=== PATIENT | female | born 1935 | race Caucasian/White ===

== ENCOUNTER 2016-11-02 10:36 | Emergency (ER) | payer MEDICARE, BC ==
[2016-11-02 11:31] LABS: Urine Bilirubin Negative (NEGATIVE); Urine Blood Negative /ul (NEGATIVE); Urine Ketone Negative (NEGATIVE); Urine Nitrite Negative (NEGATIVE); Urine Protein Negative (NEGATIVE); Urine Urobilinogen Normal (NORMAL)
[2016-11-02 11:46] LABS: Urine Appearance Clear; Urine Bacteria None Seen; Urine Color Yellow; Urine RBC None Seen /hpf (0-5); Urine WBC None Seen /hpf (0-5)
--- OUTSIDE RECORDS SUMMARY | 2016-11-02 11:47 | XMS REPORT | Continuity of Care Document ---
:1935 Author Organization [facility] ([facility]) Address [address] [place] [address] Phone [phone] Care Team Providers Name Role Phone Jonathan Boothe Primary Care Provider [phone] Source Comments This disclosure is being made pursuant to the Care Everywhere program, applicable federal and state laws, and may not contain all informaitonavailable regarding this patient.[facility] ([facility]) Active Allergies and Adverse Reactions No Known Allergies Current Medications Prescription Sig. Disp. Refills Start Date End Date Status simvastatin (ZOCOR) 10 mg Take 10 mg by Active tablet mouth every evening. aspirin 81 mg EC tablet Take 81 mg by Active mouth daily. MULTI-VITAMIN PO Take 1 Tab by Active mouth daily omeprazole 20 mg enteric Take 20 mg by 09/20/2012 Active coated capsule mouth daily take 1 capsule (20MG) by oral route every day before a meal verapamil 180 mg CR Take 360 mg by Active tablet mouth daily gabapentin 300 mg capsule Take 600 mg by Active mouth 2 times daily acetaminophen 500 mg Take 1,000 mg by Active tablet mouth 2 times daily ALPRAZolam 0.5 mg tablet Take 0.25 mg by Active mouth 2 times daily docusate 100 mg capsule Take 100 mg by Active mouth 2 times daily as needed pramipexole 0.125 mg Take 0.125 mg by Active tablet mouth at bedtime as needed ALENDRONATE 70 mg tablet 10/27/2014 Active losartan-hydrochlorothiaz Take 1 Tab by 30 Tab 11 11/04/2014 Active anita 100-12.5 mg per mouth daily tablet Active Problems Problem Noted Date Hyperlipidemia 11/02/2014 Overview: Formatting of this note may be different from the original. LIPID HISTORY: Results Date Total Cholesterol Triglycerides HDL LDL 09/19/2013 155 36 83.00 65.00 08/23/2010 171 81 60.00 95.00 07/27/2009 132 61 50.00 70.00 11/11/2008 149 54 55.00 83.00 Chronic anxiety 09/22/2014 Essential hypertension 09/22/2014 LBBB (left bundle branch block) 09/22/2014 Overview: Formatting of this note may be different from the original. CARDIOVASCULAR PROCEDURES ECHO/MUGA: Echo (Normal EF, Normal Valves, Patient rhythm atrial fibrillation) - 2010 ASAEL (Normal EF) - 06/22/2014 ELECTROPHYSIOLOGY: DCCV (Initial Rhythm A Fib, Final Rhythm Sinus, Max Joules 100, 1 Shock) - 2014 Paresthesia of left arm 09/22/2014 KEELY (acute kidney injury) 09/22/2014 REESE (dyspnea on exertion) 09/22/2014 Hyponatremia 09/22/2014 Resolved Problems Problem Noted Date Resolved Date Episodic lightheadedness 09/22/2014 09/23/2014 Immunizations Name Dates Previously Given Next Due Influenza, unspecified 03/24/2014 Pneumococcal Conjugate, PCV13 (Prevnar 13) 09/23/2014 Social History Tobacco Use Types Packs/Day Years Used Date Former Smoker 1 35 Quit: 04/03/1995 Smokeless Tobacco: Never Used Alcohol Use Drinks/Week oz/Week Comments Yes Occasionally Last Filed Vital Signs Vital Sign Reading Time Taken Blood Pressure 164/70 11/04/2014 1:04 PM CDT Pulse 76 11/04/2014 1:04 PM CDT Temperature 37 C (98.6 F) 09/23/2014 8:00 AM CDT Respiratory Rate 18 09/23/2014 8:00 AM CDT Height 1.676 m (5' 5.98") 11/04/2014 1:04 PM CDT Weight 62.596 kg (138 lb) 11/04/2014 1:04 PM CDT Body Mass Index 22.28 11/04/2014 1:04 PM CDT Oxygen Saturation 97% 09/23/2014 12:00 PM CDT Plan of Care Health Maintenance Due Date Last Done Comments Hepatitis B Vaccine (1 of 3 - Primary Series) 1935 Tdap Vaccine 11/17/1946 Lipid Disorder Screening 11/17/1953 Td Vaccine 11/17/1953 Colonoscopy 11/17/1985 Zoster Vaccine 1995 Osteoporosis Screening (DXA Bone Density) 11/17/2000 Pneumococcal Vaccine (2 of 2 - PPSV23) 2014 09/23/2014 Influenza Vaccine: Seasonal (#1) 12/21/2015 03/24/2014 Results from Last 3 Months Not on file
[2016-11-02 12:32] VITALS: BP 179/79
--- NOTE | 2016-11-02 12:32 | ERNOTE ---
Trauma/Assault HPI - Narrative Date of Service: 11/02/16 - General Stated Complaint: FELL MONDAY - HEAD PRESSURE Time Seen by Provider: 11/02/16 10:39 Source: patient Exam Limitations: no limitations - Immun/Allergies/Home Medications Immunizations: IMMUNIZATION HX Immunizations Up to Date Yes History of Influenza Vaccine Yes Hx Pneumococcal Vaccination Yes Allergies/Adverse Reactions: Allergies No Known Allergies Allergy (Verified 11/02/16 10:44) Home Medications: HOME MEDICATIONS Alendronate Sodium [Fosamax] 70 mg PO PRN 12/11/15 [Last Taken Unknown] Alprazolam [Xanax Xr] 0.5 mg PO PRN 12/11/15 [Last Taken Unknown] Aspirin [Aspirin Chewable] 81 mg PO DAILY 12/11/15 [Last Taken Unknown] Cyanocobalamin [Vitamin B-12] 1,000 mcg PO DAILY 12/11/15 [Last Taken Unknown] Donepezil HCl [Aricept] 5 mg PO HS 12/11/15 [Last Taken Unknown] L.acidoph,Paracasei, B.lactis [Probiotic] 1 each PO DAILY 12/11/15 [Last Taken Unknown] Losartan Potassium [Cozaar] 100 mg PO DAILY 12/11/15 [Last Taken Unknown] Methotrexate Sodium [Methotrexate] 2.5 mg PO DAILY 12/11/15 [Last Taken Unknown] Omeprazole 20 mg PO DAILY 12/11/15 [Last Taken Unknown] Pramipexole Di-HCl [Mirapex] 0.25 mg PO DAILY 12/11/15 [Last Taken Unknown] Verapamil HCl [Verelan] 360 mg PO DAILY 12/11/15 [Last Taken Unknown] Acetaminophen [Tylenol] 650 mg PO Q4H PRN 11/02/16 [Last Taken Unknown] Calcium Carbonate [Calcium] 500 mg PO DAILY 11/02/16 [Last Taken Unknown] Furosemide [Lasix] 20 mg PO DAILY 11/02/16 [Last Taken Unknown] Meclizine HCl [Antivert] 6.25 mg PO BID 11/02/16 [Last Taken Unknown] Mv,Calcium,Min/Iron/Folic/Vitk [Essential Woman Tablet] 1 each PO DAILY [Last Taken Unknown] Sennosides [Senna Laxative] 8.6 mg PO BID 11/02/16 [Last Taken Unknown] Spironolactone [Aldactone] 12.5 mg PO DAILY 11/02/16 [Last Taken Unknown] - History of Present Illness Narrative: Patient presents to the ED for head injuty. She relates lynnette monday she fell in the shower. She relates that she has balance problems especially if she leans her head back, these have been going on for a long time. She relates she leaned her head back to wash off her hair and fell, hitting the right side of her head. She states this dazed her and she has had a right sided MOORE ever since , mild now but persistent. No focal N/T/W> She states no other injuries. She has chronic back pain but that does not seem to be worse than normal. No focal N/T/W. No neck pain. She has had some nausea eversince the event but no vomiting. Has not seen anyone else for it. Called her doctor today and was directed to the ED. Location Occurred: Reports: home Pain Location: Reports: head Method of Injury: Reports: direct blow Severity: mild Modifying Factors - (Improves): Reports: other - nothing Modifying Factors - (Worsens): Reports: other - nothing Loss of Consciousness: Reports: no loss of consciousness Associated Symptoms - Trauma: Reports: headache. Denies: confusion, lightheadedness, slurred speech, trouble walking, vision changes, neck pain, chest pain, shortness of breath, vomiting Review of Systems - Review of Systems Constitutional: Absent: fever EYE: Absent: vision changes Respiratory: Absent: shortness of breath Cardiology: Absent: chest pain Gastrointestinal/Abdominal: Absent: abdominal pain Genitourinary: Absent: dysuria Musculoskeletal: Present: See HPI Neurological: Absent: weakness - Patient's Past Medical History Patient History - Medical: Anxiety, GERD, Other Patient History - Cardiac/Respiratory: No pertinent hx Patient History - Cancer: No Hx of Cancer Patient History - Surgical Procedures: No surgical history Patient History - Other: None - Family History Mother Family History - Medical: , Alzheimer's Disease Family History - Cardiac/Respiratory: Hypertension - Social History Living Situations: spouse Abuse History: No History of abuse Psych History: No pertinent hx Smoking Status: Former smoker Have you smoked in the past 12 months: No Alcohol Use: none Drug Use: none - Immunizations Immunizations Up to Date: Yes Hx Pneumococcal Vaccination: Yes History of Influenza Vaccine: Yes Physical Exam - Physical Exam General Appearance: Present: alert, no apparent distress, other - ambulating without difficulty. no distress. Eye Exam: Normal inspection: bilateral, PERRL: bilateral Ears, Nose, Throat: Present: normal ENT inspection, other - no temporal artery tenderness. No otorrhea or rhinorrhea. Absent: pharyngeal erythema Neck: Present: normal inspection, nontender, other - no vertebral tendenress. Absent: tender posterior midline Respiratory: Present: no respiratory distress, normal breath sounds, lungs clear Cardiovascular/Chest: Present: regular rate, rhythm Gastrointestinal/Abdominal: Present: normal bowel sounds, nontender, nondistended, soft Back Exam: Present: normal inspection, other - no point vertebral tenderness, nothign clinically would suggest fracture. Absent: vertebral tenderness Extremity Exam: Present: normal inspection, normal range of motion Neurological Exam: Present: alert, normal mood/affect, no motor/sensory deficits , hand cementer II-XII nml as tested. Absent: motor weakness Skin Exam: Absent: skin rash ED Progress - Results and Orders Patient's Lab Results:: I have reviewed the patient's lab results. - Vital Signs Patient's Vital Signs:: I have reviewed the patient's vital signs. Vital Signs: Vital Signs 11/02/16 11/02/16 10:41 11:34 Temperature 36.6 C 36.5 C Pulse Rate 89 75 Respiratory 14 15 Rate Blood Pressure 165/66 149/67 O2 Sat by Pulse 96 96 Oximetry - CT/Ultrasound CT/Ultrasound Narrative: I reviewed Head CT report - Progress/Reassessment Chief Complaint: Fall Progress Note-Subjective: 11/02/16 12:31 HCT negative. No other suggestion of fracture., No findings of stroke. Likely post concussive symptoms. She wises to go home. I disucssed warnign signs and reasons to return as well as the need for close f/u. Departure Clinical Impression: Fall, Head injury - Departure Disposition: Home self-care Instructions: Head Injury, Adult, [id number] Additional Instructions: Rest. Fluids. Follow-up with your doctor in 2-3 days for a re-check. Return for numbness, tingling, weakness or if your condition worsens or changes in any way. Referrals: Edwina Estrella DO [Primary Care Provider] -
== END 2016-11-02 12:33 | disposition home or self-care (01) ==
LOC: ER 10:36
DX: S09.90XA Unspecified injury of head, initial encounter (principal); Z87.891 Personal history of nicotine dependence; W18.2XXA Fall in (into) shower or empty bathtub, initial encounter

== ENCOUNTER 2017-03-06 14:13 | Inpatient (IN) | payer MEDICARE, BC ==
[2017-03-06] MEDS ORDERED: NORMAL SALINE 1,000 ML IV ONE (14:53)
[2017-03-06 15:02] LABS: Hemoglobin 11.3 gm/dL (12.5-16.0); Mean Cell Volume 88.2 fl (78-100); Mean Corpuscular Hemoglobin 31.1 pg (27-31); Mean Corpuscular Hgb Conc 35.3 g/dl (32-36); Mean Platelet Volume 8.4 fl (6.0-9.5); Neutrophil # 5.6 K/mm3 (1.3-6.0); Neutrophil % 79.8 % (42-75.0); Platelet Count 188 K/mm3 (150-450); Red Blood Count 3.63 M/mm3 (4.2-5.4); Red Cell Distribution Width 12.5 % (11.5-14.0)
[2017-03-06] MEDS ORDERED: ONDANSETRON HCL/PF 2 MG/ML VIAL IV ONE (15:05)
[2017-03-06] MEDS ORDERED: ONDANSETRON HCL/PF 2 MG/ML VIAL ONE (15:06)
[2017-03-06 15:35] LABS: Albumin * 4.2 gm/dl (3.4-5.0); BUN/Creatinine Ratio 18.3 (9.0-21.6); Bilirubin, Total 1.1 mg/dL (0.0-1.1); Ca. Corrected For Albumin 8.8 mg/dL (8.4-10.2); Calcium * 9.3 mg/dL (7.9-10.9); Carbon Dioxide 27.7 mmol/L (24-32.6); Potassium 4.7 mmol/L (3.4-4.6); Total Protein 7.6 gm/dL (6.2-8.2)
--- NOTE | 2017-03-06 15:52 | ERNOTE ---
Medical Problem HPI - General Chief Complaint: Nausea/Vomiting Time Seen by Provider: 03/06/17 14:42 Source: patient Exam Limitations: no limitations - Immun/Allergies/Home Medications Immunizations: IMMUNIZATION HX Immunizations Up to Date Yes History of Influenza Vaccine Yes Hx Pneumococcal Vaccination Yes Allergies/Adverse Reactions: Allergies No Known Allergies Allergy (Verified 03/06/17 14:24) Home Medications: HOME MEDICATIONS Alprazolam [Xanax Xr] 0.5 mg PO PRN 12/11/15 [Last Taken Unknown] Aspirin [Aspirin Chewable] 81 mg PO DAILY 12/11/15 [Last Taken Unknown] Cyanocobalamin [Vitamin B-12] 1,000 mcg PO DAILY 12/11/15 [Last Taken Unknown] Donepezil HCl [Aricept] 5 mg PO HS 12/11/15 [Last Taken Unknown] L.acidoph,Paracasei, B.lactis [Probiotic] 1 each PO DAILY 12/11/15 [Last Taken Unknown] Losartan Potassium [Cozaar] 100 mg PO DAILY 12/11/15 [Last Taken Unknown] Methotrexate Sodium [Methotrexate] 2.5 mg PO DAILY 12/11/15 [Last Taken Unknown] Omeprazole 40 mg PO DAILY 12/11/15 [Last Taken Unknown] Pramipexole Di-HCl [Mirapex] 0.25 mg PO DAILY 12/11/15 [Last Taken Unknown] Verapamil HCl [Verelan] 360 mg PO DAILY 12/11/15 [Last Taken Unknown] Acetaminophen [Tylenol] 650 mg PO Q4H PRN 11/02/16 [Last Taken Unknown] Calcium Carbonate [Calcium] 600 mg PO DAILY 11/02/16 [Last Taken Unknown] Furosemide [Lasix] 20 mg PO DAILY 11/02/16 [Last Taken Unknown] Meclizine HCl [Antivert] 6.25 mg PO BID 11/02/16 [Last Taken Unknown] Mv,Calcium,Min/Iron/Folic/Vitk [Essential Woman Tablet] 1 each PO DAILY [Last Taken Unknown] Sennosides [Senna Laxative] 8.6 mg PO BID 11/02/16 [Last Taken Unknown] Spironolactone [Aldactone] 25 mg PO DAILY 11/02/16 [Last Taken Unknown] Duloxetine HCl [Cymbalta] 30 mg PO DAILY 03/06/17 [Last Taken Unknown] Multivitamin [One Daily Essential] 1 each PO DAILY 03/06/17 [Last Taken Unknown] - History of Present History Narrative: Patient feels very weak and tired and lethargic. She recently had a colonoscopy 3 days ago and since then she has not felt well. She has nausea but has not been vomiting and she is fatigued. She denies any fevers chills diarrhea. Review of Systems - Review of Systems Constitutional: Present: weakness, fatigue, malaise EYE: Present: no symptoms reported ENT: Present: no symptoms reported Respiratory: Present: no symptoms reported Cardiology: Present: no symptoms reported Gastrointestinal/Abdominal: Present: nausea Genitourinary: Present: no symptoms reported Musculoskeletal: Present: no symptoms reported Skin: Present: no symptoms reported - Patient's Past Medical History Patient History - Medical: Anxiety, GERD, Other Patient History - Cardiac/Respiratory: No pertinent hx Patient History - Cancer: No Hx of Cancer Patient History - Surgical Procedures: No surgical history Patient History - Other: None - Family History Mother Family History - Medical: , Alzheimer's Disease Family History - Cardiac/Respiratory: Hypertension - Social History Living Situations: home Abuse History: No History of abuse Psych History: No pertinent hx Alcohol Use: none Drug Use: none - Immunizations Immunizations Up to Date: Yes Hx Pneumococcal Vaccination: Yes History of Influenza Vaccine: Yes Physical Exam - Physical Exam General Appearance: Present: wd/wn, alert, no apparent distress Head Exam: Present: normal inspection, no evidence of injury Ears, Nose, Throat: Present: normal ENT inspection Neck: Present: normal inspection, nontender Respiratory: Present: no respiratory distress, normal breath sounds, no accessory muscle use, chest nontender, lungs clear Cardiovascular/Chest: Present: regular rate, rhythm, no murmur, normal peripheral pulses Gastrointestinal/Abdominal: Present: normal bowel sounds, soft, tenderness - patient has diffuse abdominal tenderness all over the belly but this probably is not rebound positive bowel sounds are normal Back Exam: Present: normal inspection Extremity Exam: Present: normal inspection Neurological Exam: Present: alert, oriented, normal mood/affect, no motor/ sensory deficits ED Progress - Results and Orders Patient's Lab Results:: I have reviewed the patient's lab results. - Vital Signs Patient's Vital Signs:: I have reviewed the patient's vital signs. Vital Signs: Vital Signs 03/06/17 14:18 Temperature 36.2 C L Pulse Rate 84 Respiratory 12 Rate Blood Pressure 126/66 O2 Sat by Pulse 96 Oximetry - Progress/Reassessment Chief Complaint: Nausea/Vomiting Plan - Plan Plan: Patient's comprehensive metabolic panel reveals that her sodium is 119. She did feel very nauseated in our ER for which she received Zofran 4 mg IV. She did feel better following the administration of Zofran. This case was discussed with Dr. Estrella. Patient will be admitted for hyponatremia. Departure Clinical Impression: Hyponatremia - Departure Disposition: [facility] Condition: Good
[2017-03-06 16:19] LABS: Urine Bilirubin Negative (NEGATIVE); Urine Blood 25 /ul (NEGATIVE); Urine Ketone Negative (NEGATIVE); Urine Nitrite Negative (NEGATIVE); Urine Protein Negative (NEGATIVE); Urine Urobilinogen Normal (NORMAL)
[2017-03-06 16:29] LABS: Urine Appearance Clear; Urine Bacteria 1+; Urine Color Yellow; Urine RBC None Seen /hpf (0-5)
[2017-03-06] MEDS: NORMAL SALINE 1,000 ML IV PRN (17:12)
[2017-03-06] MEDS: ENOXAPARIN SODIUM 40 MG/0.4 ML SYRG SC SCH (17:12)
[2017-03-06] MEDS: ONDANSETRON 4 MG TAB.RAPDIS PO PRN (17:39)
[2017-03-06 19:32] LABS: Anion Gap 14.2 mmol/L (6.8-13.8); BUN/Creatinine Ratio 16.3 (9.0-21.6); Carbon Dioxide 26.6 mmol/L (24-32.6); Estimated Creat Clear 44.9; Potassium 4.8 mmol/L (3.4-4.6)
--- NOTE | 2017-03-06 19:43 | HP ---
Chief Complaint - Chief Complaint Date of Service: 03/06/17 Time of Service: 19:43 Chief Complaint: weakness, dizziness, abdominal pain History of Present Illness: 81 years old WF adm to the hospital with reports of weakness, dizziness, leg cramps and nausea x3 days. PMH significant for diastolic CHF, hypertension, HDL, spinal stenosis, and vertigo. Pt stated she had CT ABD done 3 days ago and since then she been having a sick feeling to her stomach. She was having abdominal pain hence the reason for the CT ABD. After CT ABD she was having diarrhea as expected due to gastrografin. On Monday her appetite was poor and the sick feeling to her stomach got worst. she was now lightheaded, much more weaker and increased muscle cramps. In ER Na+ 119, urine specific gravity 1.010. She had bolus 1L NS and continue with NS hydration. Repeated Na+ gradually improving. Plan of care discussed with pt she verbalized understanding and agree. - Patient's Past Medical History Patient History - Medical: Anxiety, Dementia, GERD, UTI'S, Other - hyponatremia , spinal stenosis,constipation, vertigo Patient History - Cardiac/Respiratory: CHF - diastolic , Hypertension, Hyperlipidemia, Other Patient History - Cancer: No Hx of Cancer Patient History - Surgical Procedures: Colonoscopy, EGD Patient History - Other: None - Family History Mother Family History - Medical: , Alzheimer's Disease Family History - Cardiac/Respiratory: Hypertension - Social History Living Situations: alone Abuse History: No History of abuse Psych History: No pertinent hx Smoking Status: Former smoker Have you smoked in the past 12 months: No Alcohol Use: none Drug Use: none - Immunizations Immunizations Up to Date: Yes Hx Pneumococcal Vaccination: Yes History of Influenza Vaccine: Yes Review Of Systems (GEN) - Review of Systems Generalized/Overall Review: Present: Weakness, Malaise, Fatigue EENTM: Present: Other - hard of hearing Respiratory: Present: No Symptoms Reported Cardiac: Present: No Symptoms Reported Abdominal: Present: Nausea, Abdominal Pain Genitourinary: Present: Frequency Musculoskeletal: Present: Muscle Pain Neurological: Present: Tingling Skin: Present: No Symptoms Reported Endocrine: Present: No Symptoms Reported Immunizations: IMMUNIZATION HX Immunizations Up to Date Yes History of Influenza Vaccine Yes Hx Pneumococcal Vaccination Yes Allergies/Adverse Reactions: Allergies Allergy/AdvReac Type Severity Reaction Status Date / Time No Known Allergies Allergy Verified 03/06/17 17:16 Home Medications: HOME MEDICATIONS Alprazolam [Xanax Xr] 2.5 mg PO BID 12/11/15 [Last Taken Unknown] Aspirin [Aspirin Chewable] 81 mg PO DAILY 12/11/15 [Last Taken Unknown] Cyanocobalamin [Vitamin B-12] 1,000 mcg PO DAILY 12/11/15 [Last Taken Unknown] Donepezil HCl [Aricept] 10 mg PO HS 12/11/15 [Last Taken Unknown] L.acidoph,Paracasei, B.lactis [Probiotic] 1 each PO BID 12/11/15 [Last Taken Unknown] Losartan Potassium [Cozaar] 100 mg PO DAILY 12/11/15 [Last Taken Unknown] Omeprazole 40 mg PO DAILY 12/11/15 [Last Taken Unknown] Pramipexole Di-HCl [Mirapex] 0.25 mg PO DAILY 12/11/15 [Last Taken Unknown] Verapamil HCl [Verelan] 360 mg PO DAILY 12/11/15 [Last Taken Unknown] Acetaminophen [Tylenol] 650 mg PO Q4H PRN 11/02/16 [Last Taken Unknown] Calcium Carbonate [Calcium] 600 mg PO DAILY 11/02/16 [Last Taken Unknown] Furosemide [Lasix] 40 mg PO DAILY 11/02/16 [Last Taken Unknown] Meclizine HCl [Antivert] 6.25 mg PO BID 11/02/16 [Last Taken Unknown] Sennosides [Senna Laxative] 8.6 mg PO BID 11/02/16 [Last Taken Unknown] Spironolactone [Aldactone] 25 mg PO DAILY 11/02/16 [Last Taken Unknown] Duloxetine HCl [Cymbalta] 30 mg PO DAILY 03/06/17 [Last Taken Unknown] Methotrexate Sodium [Methotrexate] 10 mg PO DAILY 03/06/17 [Last Taken Unknown] Multivitamin [One Daily Essential] 1 each PO DAILY 03/06/17 [Last Taken Unknown] Exam - Exam Vital Signs: Vital Signs - Last Taken Temp 36.4 C L 03/06/17 18:31 Pulse 82 03/06/17 18:31 Resp 20 03/06/17 18:31 BP 150/47 03/06/17 18:31 Pulse Ox 95 03/06/17 18:31 Constitutional: Present: Alert, Oriented x3, Cooperative, No distress, Elderly ENT Exam: Present: hard of hearing Eye Exam: bilateral eye: normal inspection Neck: Present: full range of motion Back Exam: Present: normal inspection Breasts: Present: Exam deferred Respiratory: Present: chest non-tender, lungs clear, normal breath sounds, no respiratory distress Cardiovascular/Chest: Present: normal peripheral pulses, regular rate, rhythm, no chest tenderness, no edema Peripheral Pulses: dorsalis-pedis (R): 2+, dorsalis-pedis (L): 2+ Abdomen: Present: Normal bowel sounds, soft, nontender, nondistended, no rebound tenderness /Rectal: Present: Exam deferred Extremity: Present: normal range of motion, non-tender, normal inspection, no pedal edema Skin Exam: Present: normal color, warm/dry Neurologic: Present: oriented x 3 Appearance: Present: appropriate appearance, appropriate insight Eye contact: Present: cooperative, good eye contact Thoughts: Present: normal thought pattern Diagnostic Studies: Abnormal Lab Results 03/06/17 03/06/17 Range/Units 16:10 19:15 Sodium 123 L (132-142) mmol/L Plasma Sodium 123 L (130-142) mmol/L Potassium 4.8 H (3.4-4.6) mmol/L Chloride 87 L (97-106) mmol/L Anion Gap 14.2 H (6.8-13.8) mmol/L Urine Blood 25 H (NEGATIVE) /ul Ur Leukocyte Esterase 75 H (NEGATIVE) /ul Urine WBC 5-10 H (0-5) /hpf Urine Bacteria 1+ H (NONE) Laboratory Results WBC 7.0 K/mm3 (4.0-10.5) 03/06/17 15:00 RBC 3.63 M/mm3 (4.2-5.4) L 03/06/17 15:00 Hgb 11.3 gm/dL (12.5-16.0) L 03/06/17 15:00 Hct 32.0 % (37.0-47.0) L 03/06/17 15:00 MCV 88.2 fl (78-100) 03/06/17 15:00 MCH 31.1 pg (27-31) H 03/06/17 15:00 MCHC 35.3 g/dl (32-36) 03/06/17 15:00 RDW 12.5 % (11.5-14.0) 03/06/17 15:00 Plt Count 188 K/mm3 (150-450) 03/06/17 15:00 MPV 8.4 fl (6.0-9.5) 03/06/17 15:00 Immature Gran % (Auto) 0.40 % (0.001-0.429) 03/06/17 15:00 Immature Gran # (Auto) 0.03 K/mm3 (0.000-0.0310) 03/06/17 15:00 Neutrophils % 79.8 % (42-75.0) H 03/06/17 15:00 Lymphocytes % 10.3 % (20-51) L 03/06/17 15:00 Monocytes % 8.2 % (0.0-9) 03/06/17 15:00 Eosinophils % 0.9 % (0.0-3.0) 03/06/17 15:00 Basophils % 0.4 % (0.0-1.0) 03/06/17 15:00 Nucleated RBC % 0.0 k/mm3 (0-1) 03/06/17 15:00 Neutrophils # 5.6 K/mm3 (1.3-6.0) 03/06/17 15:00 Lymphocytes # 0.7 k/mm3 (1.5-3.5) L 03/06/17 15:00 Monocytes # 0.6 k/mm3 (0.0-1.0) 03/06/17 15:00 Eosinophils # 0.1 k/mm3 (0.0-0.7) 03/06/17 15:00 Absolute Basophils 0.0 k/mm3 (0.0-0.1) 03/06/17 15:00 Sodium 123 mmol/L (132-142) L 03/06/17 19:15 Plasma Sodium 123 mmol/L (130-142) L 03/06/17 19:15 Potassium 4.8 mmol/L (3.4-4.6) H 03/06/17 19:15 Chloride 87 mmol/L (97-106) L 03/06/17 19:15 Carbon Dioxide 26.6 mmol/L (24-32.6) 03/06/17 19:15 Anion Gap 14.2 mmol/L (6.8-13.8) H 03/06/17 19:15 BUN 15 mg/dL (3-23) 03/06/17 19:15 Creatinine 0.92 mg/dL (0.4-1.4) 03/06/17 19:15 Est GFR (Non-Af Amer) 62 mL/min (60-130) 03/06/17 19:15 BUN/Creatinine Ratio 16.3 (9.0-21.6) 03/06/17 19:15 Random Glucose 104 mg/dL (70-110) 03/06/17 19:15 Calcium 9.0 mg/dL (7.9-10.9) 03/06/17 19:15 Calcium Adj for Albumin 8.8 mg/dL (8.4-10.2) 03/06/17 15:00 Total Bilirubin 1.1 mg/dL (0.0-1.1) 03/06/17 15:00 AST 23 U/L (0-48) 03/06/17 15:00 ALT 25 U/L (19-67) 03/06/17 15:00 Alkaline Phosphatase 86 U/L (50-170) 03/06/17 15:00 Total Protein 7.6 gm/dL (6.2-8.2) 03/06/17 15:00 Albumin 4.2 gm/dl (3.4-5.0) 03/06/17 15:00 Urine Color Yellow 03/06/17 16:10 Urine Appearance Clear 03/06/17 16:10 Urine pH 6.0 pH (5.0-7.0) 03/06/17 16:10 Ur Specific [place] 1.010 SP.GR. (1.005-1.010) 03/06/17 16:10 Urine Protein Negative mg/dL (NEGATIVE) 03/06/17 16:10 Urine Glucose (UA) Negative mg/dL (NEGATIVE) 03/06/17 16:10 Urine Ketones Negative mg/dL (NEGATIVE) 03/06/17 16:10 Urine Blood 25 /ul (NEGATIVE) H 03/06/17 16:10 Urine Nitrate Negative (NEGATIVE) 03/06/17 16:10 Urine Bilirubin Negative mg/dl (NEGATIVE) 03/06/17 16:10 Urine Urobilinogen Normal EU/dl (NORMAL) 03/06/17 16:10 Ur Leukocyte Esterase 75 /ul (NEGATIVE) H 03/06/17 16:10 Urine RBC None seen /hpf (0-5) 03/06/17 16:10 Urine WBC 5-10 /hpf (0-5) H 03/06/17 16:10 Ur Epithelial Cells Trace /hpf (0-5) 03/06/17 16:10 Urine Bacteria 1+ (NONE) H 03/06/17 16:10 Urine Culture Comments Culture to follow 03/06/17 16:10 Assessment/Plan - Narrative Narrative: Acute hyponatremia- likely due to hypovolemic from diarrhea and diuretic use On adm Na+ 119---->123 after IVF, will continue to monitor pt on Lasix, aldactone and losartan at home, will hold medications for now Urine specific gravity 1.010 continue IVF Monitor BMP 4hrs Mag, phos, Lipid pending Hyperkalemia-gradually trending up On adm K+ 4.7---->4.9 Monitor Bmp Diastolic CHF- stable Weight daily Strict I/O Monitor Lungs while getting IVF May resume home medications when hyponatremia resolved and stable Hypertension- continue to monitor VS Q shift and as indicated Constipation Continue with laxatives and stool softeners Code status: DNR VTE ppx: SCD, lovenox and ambulate GI ppx:protonix Time 45 minutes, previous records reviewed and case discussed with Dr Estrella - Assessment/Plan (1) Acute hyponatremia Problem: Acute (2) Chronic diastolic CHF (congestive heart failure) Problem: Chronic (3) Constipation Problem: Chronic Qualifiers: Constipation type: slow transit constipation Qualified Code(s): K59.01 - Slow transit constipation (4) Hyperkalemia Problem: Acute
[2017-03-06] MEDS: SENNOSIDES 8.6 MG TABLET PO SCH (21:29)
[2017-03-06] MEDS: DONEPEZIL HCL 10 MG TABLET PO SCH (21:29)
[2017-03-06 23:15] LABS: Anion Gap 11.6 mmol/L (6.8-13.8); BUN/Creatinine Ratio 17.1 (9.0-21.6); Calcium * 8.3 mg/dL (7.9-10.9); Carbon Dioxide 25.4 mmol/L (24-32.6); Estimated Creat Clear 50.4; Magnesium 1.4 mg/dL (1.2-2.8)
[2017-03-07] MEDS: ONDANSETRON 4 MG TAB.RAPDIS PO PRN ×3 (00:27→22:01)
[2017-03-07] MEDS: NORMAL SALINE 1,000 ML IV PRN ×3 (00:29→19:08)
[2017-03-07] MEDS: PANTOPRAZOLE SODIUM 40 MG TABLET.EC PO SCH (07:16)
[2017-03-07] MEDS ORDERED: FOLIC PO SCH (09:00)
[2017-03-07] MEDS ORDERED: VITK PO SCH (09:00)
[2017-03-07] MEDS ORDERED: [UNRECOGNIZED DRUG - OTHER] PO SCH (09:00)
[2017-03-07] MEDS ORDERED: IRON PO SCH (09:00)
[2017-03-07] MEDS ORDERED: MV CALCIUM MIN PO SCH (09:00)
[2017-03-07] MEDS: ASPIRIN 81 MG TAB.CHEW PO SCH (09:27)
[2017-03-07] MEDS: LACTOBACILLUS ACIDOPHILUS 100 CAP BTL PO SCH (09:27)
[2017-03-07] MEDS: DULoxetine HCL 30 MG CAPSULE.SA PO SCH (09:28)
[2017-03-07] MEDS: SENNOSIDES 8.6 MG TABLET PO SCH ×4 (09:29→21:05)
[2017-03-07] MEDS: CYANOCOBALAMIN 1,000 MCG TABLET PO SCH (09:29)
[2017-03-07] MEDS: MULTIVITAMINS 1 CAP CAPSULE PO SCH (09:29)
[2017-03-07] MEDS: PRAMIPEXOLE DI-HCL 0.5 MG TABLET PO SCH (09:37)
[2017-03-07] MEDS: VERAPAMIL HCL 120 MG TABLET.SA PO SCH (09:37)
[2017-03-07 09:42] LABS: Anion Gap 11.2 mmol/L (6.8-13.8); BUN/Creatinine Ratio 14.3 (9.0-21.6); Calcium * 8.7 mg/dL (7.9-10.9); Carbon Dioxide 26.7 mmol/L (24-32.6); Estimated Creat Clear 49.2; Potassium 3.9 mmol/L (3.4-4.6)
[2017-03-07] MEDS ORDERED: SUCRALFATE 1 G/10 ML UDC PO ONE (15:48)
[2017-03-07] MEDS ORDERED: MAG HYDROX/ALUMINUM HYD/SIMETH 30 ML UDC PO ONE (15:48)
[2017-03-07] MEDS ORDERED: LIDOCAINE HCL 20 ML UDC PO ONE (15:48)
[2017-03-07 16:18] LABS: BUN/Creatinine Ratio 15.4 (9.0-21.6); Calcium * 8.1 mg/dL (7.9-10.9); Carbon Dioxide 26.1 mmol/L (24-32.6); Estimated Creat Clear 63.5; Potassium 4.1 mmol/L (3.4-4.6)
[2017-03-07] MEDS: ENOXAPARIN SODIUM 40 MG/0.4 ML SYRG SC SCH (16:40)
[2017-03-07 20:00] LABS: Anion Gap 13.2 mmol/L (6.8-13.8); Calcium * 8.4 mg/dL (7.9-10.9); Carbon Dioxide 24.8 mmol/L (24-32.6); Estimated Creat Clear 59.9
[2017-03-07] MEDS: DONEPEZIL HCL 10 MG TABLET PO SCH (21:02)
[2017-03-07] MEDS: ALPRAZolam 0.5 MG TABLET PO PRN (21:57)
[2017-03-08 06:55] LABS: Anion Gap 10.1 mmol/L (6.8-13.8); BUN/Creatinine Ratio 10.8 (9.0-21.6); Calcium * 8.4 mg/dL (7.9-10.9); Carbon Dioxide 25.8 mmol/L (24-32.6); Estimated Creat Clear 63.5; Potassium 3.9 mmol/L (3.4-4.6)
--- NOTE | 2017-03-08 08:19 | PN ---
Subjective - Date and Time Seen Date: 03/07/17 Time: 09:30 Subjective Narrative: Patient seen and examined at bedside. No acute issues overnight. Patient states she is just generally not feeling well. She admits to nausea and abdominal bloating/discomfort, especially after eating. Objective - Review of Systems Generalized/Overall Review: Reports: Weakness - generalized, Fatigue EENTM: Reports: No Symptoms Reported Respiratory: Reports: No Symptoms Reported Cardiac: Reports: No Symptoms Reported Abdominal: Reports: Nausea Genitourinary Symptoms: Reports: No Symptoms Reported Musculoskeletal Complaints: Reports: No Symptoms Reported Neurological: Reports: No Symptoms Reported Skin: Reports: No Symptoms Reported Endocrine: Reports: No Symptoms Reported Misc: All systems neg except as marked - Vitals Vitals: Last Vital Signs Temp 37.4 C 03/08/17 07:08 Pulse 84 03/08/17 07:08 Resp 18 03/08/17 07:08 BP 148/52 03/08/17 07:08 Pulse Ox 92 03/08/17 07:08 - Abnormal Lab Findings Abnormal Lab Findings: Abnormal Lab Results 03/07/17 03/07/17 03/07/17 Range/Units 09:20 15:35 16:33 Sodium 123 L 121 L (132-142) mmol/L Plasma Sodium 123 L 121 L (130-142) mmol/L Chloride 89 L 89 L (97-106) mmol/L Random Glucose (70-110) mg/dL Ur Random Creatinine 47.0 L (60-200) mg/dL 03/07/17 03/08/17 Range/Units 19:43 06:10 Sodium 121 L 121 L (132-142) mmol/L Plasma Sodium 121 L 121 L (130-142) mmol/L Chloride 87 L 89 L (97-106) mmol/L Random Glucose 117 H (70-110) mg/dL Ur Random Creatinine (60-200) mg/dL - Exam Constitutional: Present: Alert, Oriented x3, Cooperative, Well developed, No distress, Elderly, Thin and frail ENT Exam: Present: moist mucous membranes Respiratory: Present: lungs clear, normal breath sounds, no respiratory distress , no accessory muscle use Cardiovascular/Chest: Present: regular rate, rhythm Abdomen: Present: soft, nontender, nondistended, no rebound tenderness Skin Exam: Present: warm/dry Neurologic: Present: no motor/sensory deficits, alert, normal mood/affect, oriented x 3 Appearance: Present: appropriate appearance, appropriate insight, neat Eye contact: Present: cooperative, good eye contact, normal speech Thoughts: Present: normal thought pattern, no apparent hallucination Assessment/Plan - Problems/Diagnosis (1) Hyponatremia Problem: Acute Narrative: Sodium level slowly improving. 119 on admission and now 123. Continue IV fluids with NS @ 125cc/hr. Recheck BMP at 1900 and again in AM. (2) Nausea Problem: Acute (3) Postprandial abdominal bloating Problem: Acute Narrative: Gastric emptying study ordered for tomorrow AM
--- NOTE | 2017-03-08 08:19 | PN ---
Subjective - Date and Time Seen Date: 03/08/17 Time: 14:58 Subjective Narrative: Patient seen and examined at bedside. No acute issues overnight. Patient feeling nauseated and just completed her gastric emptying study. Objective - Review of Systems Generalized/Overall Review: Reports: Weakness - generalized EENTM: Reports: No Symptoms Reported Respiratory: Reports: No Symptoms Reported Cardiac: Reports: No Symptoms Reported Abdominal: Reports: Nausea Genitourinary Symptoms: Reports: No Symptoms Reported Musculoskeletal Complaints: Reports: No Symptoms Reported Neurological: Reports: Headache Skin: Reports: No Symptoms Reported Endocrine: Reports: No Symptoms Reported Misc: All systems neg except as marked - Vitals Vitals: Last Vital Signs Temp 37.4 C 03/08/17 07:08 Pulse 84 03/08/17 07:08 Resp 18 03/08/17 07:08 BP 148/52 03/08/17 07:08 Pulse Ox 92 03/08/17 07:08 - Abnormal Lab Findings Abnormal Lab Findings: Abnormal Lab Results 03/07/17 03/07/17 03/07/17 Range/Units 09:20 15:35 16:33 Sodium 123 L 121 L (132-142) mmol/L Plasma Sodium 123 L 121 L (130-142) mmol/L Chloride 89 L 89 L (97-106) mmol/L Random Glucose (70-110) mg/dL Ur Random Creatinine 47.0 L (60-200) mg/dL 03/07/17 03/08/17 Range/Units 19:43 06:10 Sodium 121 L 121 L (132-142) mmol/L Plasma Sodium 121 L 121 L (130-142) mmol/L Chloride 87 L 89 L (97-106) mmol/L Random Glucose 117 H (70-110) mg/dL Ur Random Creatinine (60-200) mg/dL - Exam Constitutional: Present: Alert, Oriented x3, Cooperative, Well developed, Acute distress - appears uncomfortable secondary to nausea, Elderly, Thin and frail ENT Exam: Present: moist mucous membranes Respiratory: Present: lungs clear, normal breath sounds, no respiratory distress , no accessory muscle use Cardiovascular/Chest: Present: regular rate, rhythm Abdomen: Present: soft, nontender, nondistended, no rebound tenderness Extremity: Present: normal range of motion, normal inspection Skin Exam: Present: warm/dry Neurologic: Present: no motor/sensory deficits, alert, normal mood/affect, oriented x 3 Appearance: Present: appropriate appearance, appropriate insight, neat, no memory impairment Eye contact: Present: cooperative, good eye contact, normal speech Thoughts: Present: normal thought pattern, no apparent hallucination Assessment/Plan - Problems/Diagnosis (1) Hyponatremia Problem: Acute Narrative: Despite initial improvement in sodium level with NS, sodium plateaued around 123 and is now trending down and is 121 this AM. Still awaiting parts of her hyponatremia work-up including urine and plasma osmolality and urine urea nitrogen [to calculate fractional excretion of urea nitrogen (can't use fractional excretion of sodium as patient is on lasix at home)]. Discontinue IV fluids. Start fluid restriction of 2000cc per 24 hours. Recheck BMP at 1600 today. (2) Gastroparesis Problem: Acute Narrative: Gastric emptying study completed this AM shows delayed gastric emptying consistent with gastroparesis. Start reglan liquid PO 5mg 15 minutes before meals. Continue zofran as needed for N/V.
[2017-03-08] MEDS ORDERED: METHOTREXATE SODIUM 2.5 MG TABLET PO SCH (09:00)
[2017-03-08] MEDS: PANTOPRAZOLE SODIUM 40 MG TABLET.EC PO SCH (11:41)
[2017-03-08] MEDS: SPIRONOLACTONE 25 MG TABLET PO SCH (11:41)
[2017-03-08] MEDS: LACTOBACILLUS ACIDOPHILUS 100 CAP BTL PO SCH (11:42)
[2017-03-08] MEDS: LOSARTAN POTASSIUM 50 MG TABLET PO SCH (11:42)
[2017-03-08] MEDS: VERAPAMIL HCL 120 MG TABLET.SA PO SCH (11:42)
[2017-03-08] MEDS: ASPIRIN 81 MG TAB.CHEW PO SCH (11:42)
[2017-03-08] MEDS: DULoxetine HCL 30 MG CAPSULE.SA PO SCH (11:43)
[2017-03-08] MEDS: FUROSEMIDE 40 MG TABLET PO SCH (11:43)
[2017-03-08] MEDS: SENNOSIDES 8.6 MG TABLET PO SCH ×2 (11:44→22:00)
[2017-03-08] MEDS: PRAMIPEXOLE DI-HCL 0.5 MG TABLET PO SCH ×2 (11:44→22:34)
[2017-03-08] MEDS: CYANOCOBALAMIN 1,000 MCG TABLET PO SCH (11:44)
[2017-03-08] MEDS: MULTIVITAMINS 1 CAP CAPSULE PO SCH (11:44)
[2017-03-08] MEDS: FLUTICASONE PROPIONATE 120 SPRAY INHALER NS PRN (11:47)
[2017-03-08] MEDS: ACETAMINOPHEN 325 MG TABLET PO PRN (11:54)
[2017-03-08] MEDS ORDERED: METOCLOPRAMIDE HCL 5 MG/5 ML BTL PO SCH ×2 (12:30→17:00)
[2017-03-08] MEDS: ONDANSETRON 4 MG TAB.RAPDIS PO PRN (12:48)
[2017-03-08 16:35] LABS: Carbon Dioxide 26.1 mmol/L (24-32.6); Estimated Creat Clear 51.6; Potassium 4.1 mmol/L (3.4-4.6)
[2017-03-08] MEDS: ENOXAPARIN SODIUM 40 MG/0.4 ML SYRG SC SCH (16:52)
[2017-03-08] MEDS: SODIUM CHLORIDE 3 % 500 ML IV SCH (16:53)
[2017-03-08] MEDS: METOCLOPRAMIDE HCL 5 MG/5 ML BTL PO SCH (17:03)
[2017-03-08 19:17] LABS: Anion Gap 12.1 mmol/L (6.8-13.8); BUN/Creatinine Ratio 10.1 (9.0-21.6); Calcium * 8.8 mg/dL (7.9-10.9); Carbon Dioxide 27.5 mmol/L (24-32.6); Estimated Creat Clear 46.4; Potassium 3.6 mmol/L (3.4-4.6)
[2017-03-08] MEDS: ALPRAZolam 0.5 MG TABLET PO PRN (21:57)
[2017-03-08] MEDS: DONEPEZIL HCL 10 MG TABLET PO SCH (22:01)
[2017-03-09] MEDS: SODIUM CHLORIDE 3 % 500 ML IV SCH (00:44)
[2017-03-09] MEDS: FLUTICASONE PROPIONATE 120 SPRAY INHALER NS PRN ×3 (03:17→22:30)
[2017-03-09] MEDS: ACETAMINOPHEN 325 MG TABLET PO PRN ×2 (03:24→22:29)
[2017-03-09 06:28] LABS: Anion Gap 7.8 mmol/L (6.8-13.8); Carbon Dioxide 27.7 mmol/L (24-32.6); Estimated Creat Clear 56.6; Potassium 3.5 mmol/L (3.4-4.6)
[2017-03-09] MEDS: METOCLOPRAMIDE HCL 5 MG/5 ML BTL PO SCH ×3 (06:58→17:12)
[2017-03-09] MEDS: PANTOPRAZOLE SODIUM 40 MG TABLET.EC PO SCH (06:58)
[2017-03-09] MEDS: FUROSEMIDE 40 MG TABLET PO SCH (08:47)
[2017-03-09] MEDS: SPIRONOLACTONE 25 MG TABLET PO SCH (08:47)
[2017-03-09] MEDS: SENNOSIDES 8.6 MG TABLET PO SCH ×2 (08:55→20:23)
[2017-03-09] MEDS: ASPIRIN 81 MG TAB.CHEW PO SCH (08:59)
[2017-03-09] MEDS: LACTOBACILLUS ACIDOPHILUS 100 CAP BTL PO SCH (08:59)
[2017-03-09] MEDS: DULoxetine HCL 30 MG CAPSULE.SA PO SCH (09:00)
[2017-03-09] MEDS: MULTIVITAMINS 1 CAP CAPSULE PO SCH (09:00)
[2017-03-09] MEDS: LOSARTAN POTASSIUM 50 MG TABLET PO SCH (09:00)
[2017-03-09] MEDS: CYANOCOBALAMIN 1,000 MCG TABLET PO SCH (09:01)
[2017-03-09] MEDS: VERAPAMIL HCL 120 MG TABLET.SA PO SCH (09:53)
[2017-03-09] MEDS ORDERED: FLU VACC QS2017-18(6MOS UP)/PF 60 MCG/0.5 ML SYRINGE IM ONE (10:20)
[2017-03-09 12:30] LABS: Anion Gap 8.7 mmol/L (6.8-13.8); Calcium * 8.4 mg/dL (7.9-10.9); Estimated Creat Clear 55.1; Potassium 3.7 mmol/L (3.4-4.6)
--- NOTE | 2017-03-09 13:43 | PN ---
Subjective - Date and Time Seen Date: 03/09/17 Time: 10:00 Subjective Narrative: Patient seen and examined at bedside. No acute issues overnight. Patient started reglan yesterday evening and states that she was able to eat dinner last night and breakfast this morning without any GI discomfort or nausea. Overall, patient states that she is feeling much better. Objective - Review of Systems Generalized/Overall Review: Reports: Weakness - generalized, Fatigue EENTM: Reports: No Symptoms Reported Respiratory: Reports: No Symptoms Reported Cardiac: Reports: No Symptoms Reported Abdominal: Reports: No Symptoms Reported Genitourinary Symptoms: Reports: No Symptoms Reported Musculoskeletal Complaints: Reports: No Symptoms Reported Neurological: Reports: No Symptoms Reported Skin: Reports: No Symptoms Reported Endocrine: Reports: No Symptoms Reported Misc: All systems neg except as marked - Vitals Vitals: Last Vital Signs Temp 36.7 C 03/09/17 07:59 Pulse 86 03/09/17 09:53 Resp 18 03/09/17 07:59 BP 123/40 03/09/17 09:53 Pulse Ox 91 03/09/17 07:59 - Abnormal Lab Findings Abnormal Lab Findings: Abnormal Lab Results 03/08/17 03/08/17 03/09/17 Range/Units 16:20 19:05 03:31 Sodium 117 L* 121 L 124 L (132-142) mmol/L Plasma Sodium 117 L* 122 L (130-142) mmol/L Chloride 85 L 85 L (97-106) mmol/L Random Glucose 118 H 150 H (70-110) mg/dL 03/09/17 03/09/17 Range/Units 06:00 12:15 Sodium 127 L 127 L (132-142) mmol/L Plasma Sodium 127 L 127 L (130-142) mmol/L Chloride 95 L 94 L (97-106) mmol/L Random Glucose (70-110) mg/dL - Exam Constitutional: Present: Alert, Oriented x3, Cooperative, Well developed, No distress, Elderly, Thin and frail ENT Exam: Present: moist mucous membranes Respiratory: Present: lungs clear, normal breath sounds, no respiratory distress , no accessory muscle use Cardiovascular/Chest: Present: regular rate, rhythm Abdomen: Present: soft, nontender, nondistended Extremity: Present: normal range of motion, normal inspection, no pedal edema Skin Exam: Present: warm/dry Neurologic: Present: alert, normal mood/affect, oriented x 3 Appearance: Present: appropriate appearance, appropriate insight, neat Eye contact: Present: cooperative, good eye contact, normal speech Thoughts: Present: normal thought pattern, no apparent hallucination Assessment/Plan - Problems/Diagnosis (1) Hyponatremia Problem: Acute Narrative: Patient's sodium dropped yesterday afternoon so she was started on 3% saline overnight with improvement in her sodium level this AM so 3% was discontinued and we will monitor the patient's sodium level to insure she is able to keep her sodium level up on her own without IV fluids. Check BMP at noon and then Q4H. (2) Gastroparesis Problem: Acute Narrative: Gastric emptying study completed 03/08/2017 showed delayed gastric emptying consistent with gastroparesis. Patient started on reglan liquid PO 5mg 15 minutes before meals. Continue zofran as needed for N/V. Patient has noticed marked improvement since starting reglan. (3) Nausea Problem: Chronic (4) Postprandial abdominal bloating Problem: Chronic
[2017-03-09] MEDS: ENOXAPARIN SODIUM 40 MG/0.4 ML SYRG SC SCH (16:03)
[2017-03-09 16:35] LABS: Anion Gap 12.6 mmol/L (6.8-13.8); BUN/Creatinine Ratio 13.1 (9.0-21.6); Calcium * 8.6 mg/dL (7.9-10.9); Carbon Dioxide 25.5 mmol/L (24-32.6); Estimated Creat Clear 41.7; Potassium 4.1 mmol/L (3.4-4.6)
[2017-03-09] MEDS: DONEPEZIL HCL 10 MG TABLET PO SCH (20:23)
[2017-03-09] MEDS: PRAMIPEXOLE DI-HCL 0.5 MG TABLET PO SCH (20:23)
[2017-03-09 20:49] LABS: Anion Gap 10.6 mmol/L (6.8-13.8); BUN/Creatinine Ratio 18.9 (9.0-21.6); Calcium * 8.7 mg/dL (7.9-10.9); Carbon Dioxide 27.7 mmol/L (24-32.6); Estimated Creat Clear 43.5; Potassium 4.3 mmol/L (3.4-4.6)
[2017-03-09] MEDS: ALPRAZolam 0.5 MG TABLET PO PRN (22:29)
[2017-03-10 06:22] LABS: Anion Gap 7.5 mmol/L (6.8-13.8); Calcium * 8.4 mg/dL (7.9-10.9); Carbon Dioxide 28.2 mmol/L (24-32.6); Potassium 3.7 mmol/L (3.4-4.6)
[2017-03-10] MEDS: PANTOPRAZOLE SODIUM 40 MG TABLET.EC PO SCH (07:08)
[2017-03-10] MEDS: METOCLOPRAMIDE HCL 5 MG/5 ML BTL PO SCH ×3 (07:08→17:20)
[2017-03-10] MEDS: ACETAMINOPHEN 325 MG TABLET PO PRN (07:12)
[2017-03-10] MEDS: CYANOCOBALAMIN 1,000 MCG TABLET PO SCH (09:24)
[2017-03-10] MEDS: VERAPAMIL HCL 120 MG TABLET.SA PO SCH (09:24)
[2017-03-10] MEDS: ASPIRIN 81 MG TAB.CHEW PO SCH (09:24)
[2017-03-10] MEDS: FUROSEMIDE 40 MG TABLET PO SCH (09:25)
[2017-03-10] MEDS: LOSARTAN POTASSIUM 50 MG TABLET PO SCH (09:25)
[2017-03-10] MEDS: MULTIVITAMINS 1 CAP CAPSULE PO SCH (09:25)
[2017-03-10] MEDS: SENNOSIDES 8.6 MG TABLET PO SCH ×2 (09:25→21:55)
[2017-03-10] MEDS: DULoxetine HCL 30 MG CAPSULE.SA PO SCH (09:25)
[2017-03-10] MEDS: SPIRONOLACTONE 25 MG TABLET PO SCH (09:25)
[2017-03-10] MEDS: LACTOBACILLUS ACIDOPHILUS 100 CAP BTL PO SCH (09:26)
--- NOTE | 2017-03-10 10:16 | PN ---
Subjective - Date and Time Seen Date: 03/10/17 Time: 10:12 Subjective Narrative: Patient seen and examined at bedside. No acute issues overnight. Patient complains of sinus pressure and pain and feels like she does when she gets sinus infections. Objective - Review of Systems Generalized/Overall Review: Reports: Weakness - generalized, Fatigue EENTM: Reports: Nose Congestion, Other - Sinus congestion and pain Respiratory: Reports: No Symptoms Reported Cardiac: Reports: No Symptoms Reported Abdominal: Reports: No Symptoms Reported Genitourinary Symptoms: Reports: No Symptoms Reported Musculoskeletal Complaints: Reports: No Symptoms Reported Neurological: Reports: No Symptoms Reported Skin: Reports: No Symptoms Reported Endocrine: Reports: No Symptoms Reported Misc: All systems neg except as marked - Vitals Vitals: Last Vital Signs Temp 36.8 C 03/10/17 06:09 Pulse 89 03/10/17 09:25 Resp 18 03/10/17 06:09 BP 134/49 03/10/17 09:25 Pulse Ox 99 03/10/17 06:09 - Abnormal Lab Findings Abnormal Lab Findings: Abnormal Lab Results 03/07/17 03/09/17 03/09/17 Range/Units 15:35 12:15 16:19 Sodium 127 L 127 L (132-142) mmol/L Plasma Sodium 127 L 127 L (130-142) mmol/L Chloride 94 L 93 L (97-106) mmol/L Est GFR (Non-Af Amer) 57 L D (60-130) mL/min Random Glucose (70-110) mg/dL Serum Osmolality 246 L mOsm/kg 03/09/17 03/10/17 Range/Units 20:30 06:01 Sodium 126 L 127 L (132-142) mmol/L Plasma Sodium 127 L 127 L (130-142) mmol/L Chloride 92 L 95 L (97-106) mmol/L Est GFR (Non-Af Amer) (60-130) mL/min Random Glucose 132 H (70-110) mg/dL Serum Osmolality mOsm/kg - Exam Constitutional: Present: Alert, Oriented x3, Cooperative, Well developed, No distress, Elderly, Thin and frail ENT Exam: Present: TM dull, nasal congestion - TTP over bilateral frontal and bilateral maxillary sinuses Respiratory: Present: lungs clear, normal breath sounds, no respiratory distress , no accessory muscle use Cardiovascular/Chest: Present: regular rate, rhythm, edema - trace to 1+ pitting edema in bilateral LEs Abdomen: Present: soft, nontender, nondistended, no rebound tenderness Extremity: Present: lower extremity edema - trace to 1+ pitting edema in bilateral LEs Skin Exam: Present: warm/dry Neurologic: Present: alert, normal mood/affect, oriented x 3 Appearance: Present: appropriate appearance, appropriate insight, neat Eye contact: Present: cooperative, good eye contact, normal speech Thoughts: Present: normal thought pattern, no apparent hallucination Assessment/Plan - Problems/Diagnosis (1) Hyponatremia Problem: Acute Narrative: Hypotonic hyponatremia. Most likely secondary to poor PO intake in combination with ongoing diurectic use. Monitor to insure patient is able to keep her sodium level up on her own without IV fluids. Monitor BMP Q12H. Continue to hold home methotrexate as this is known to be a potential etiology of drug- induced hyponatremia. Although not as well documented/studied, pramipexole is another potential cause of drug-induced hyponatremia but we will continue this medication for now given the patients history of severe RLS. (2) Gastroparesis Problem: Acute Narrative: Gastric emptying study completed 03/08/2017 showed delayed gastric emptying consistent with gastroparesis. Patient started on reglan liquid PO 5mg 15 minutes before meals. Continue zofran as needed for N/V. Patient has noticed marked improvement since starting reglan. (3) Asymptomatic bacteriuria Problem: Acute Narrative: Final urine culture results indicate growth of citrobacter freundii. However, patient did not have any urinary complaints on admission so I would consider this asymptomatic bacteruria and antibiotic treatment is not indicated. (4) Acute sinus infection Problem: Acute Qualifiers: Sinusitis location: maxillary Narrative: Treat with azithromycin 250mg PO daily with plans to continue treatment for 3-5 days (5) Postprandial abdominal bloating Problem: Chronic (6) Nausea Problem: Chronic
[2017-03-10] MEDS: AZITHROMYCIN 250 MG TABLET PO SCH (11:42)
[2017-03-10] MEDS: ENOXAPARIN SODIUM 40 MG/0.4 ML SYRG SC SCH (16:15)
[2017-03-10 18:18] LABS: Anion Gap 9.5 mmol/L (6.8-13.8); BUN/Creatinine Ratio 15.7 (9.0-21.6); Calcium * 8.7 mg/dL (7.9-10.9); Carbon Dioxide 27.5 mmol/L (24-32.6); Estimated Creat Clear 38.2
[2017-03-10] MEDS: PRAMIPEXOLE DI-HCL 0.5 MG TABLET PO SCH (18:54)
[2017-03-10] MEDS: ALPRAZolam 0.5 MG TABLET PO PRN (21:55)
[2017-03-10] MEDS: DONEPEZIL HCL 10 MG TABLET PO SCH (21:55)
[2017-03-10] MEDS: FLUTICASONE PROPIONATE 120 SPRAY INHALER NS PRN (21:56)
[2017-03-11 05:47] LABS: Anion Gap 6.2 mmol/L (6.8-13.8); BUN/Creatinine Ratio 13.8 (9.0-21.6); Calcium * 8.3 mg/dL (7.9-10.9); Carbon Dioxide 29.6 mmol/L (24-32.6); Estimated Creat Clear 47.5; Potassium 3.8 mmol/L (3.4-4.6)
[2017-03-11] MEDS: PANTOPRAZOLE SODIUM 40 MG TABLET.EC PO SCH (06:36)
[2017-03-11] MEDS: METOCLOPRAMIDE HCL 5 MG/5 ML BTL PO SCH ×3 (06:36→17:09)
[2017-03-11] MEDS: FLUTICASONE PROPIONATE 120 SPRAY INHALER NS PRN ×2 (08:06→20:30)
[2017-03-11] MEDS: SPIRONOLACTONE 25 MG TABLET PO SCH (08:06)
[2017-03-11] MEDS: VERAPAMIL HCL 120 MG TABLET.SA PO SCH (08:07)
[2017-03-11] MEDS: LOSARTAN POTASSIUM 50 MG TABLET PO SCH (08:07)
[2017-03-11] MEDS: ASPIRIN 81 MG TAB.CHEW PO SCH (08:07)
[2017-03-11] MEDS: LACTOBACILLUS ACIDOPHILUS 100 CAP BTL PO SCH (08:07)
[2017-03-11] MEDS: MULTIVITAMINS 1 CAP CAPSULE PO SCH (08:08)
[2017-03-11] MEDS: FUROSEMIDE 40 MG TABLET PO SCH (08:08)
[2017-03-11] MEDS: SENNOSIDES 8.6 MG TABLET PO SCH ×2 (08:08→20:29)
[2017-03-11] MEDS: CYANOCOBALAMIN 1,000 MCG TABLET PO SCH (08:08)
[2017-03-11] MEDS: DULoxetine HCL 30 MG CAPSULE.SA PO SCH (08:08)
[2017-03-11] MEDS: AZITHROMYCIN 250 MG TABLET PO SCH (08:08)
--- NOTE | 2017-03-11 11:17 | PN ---
Subjective - Date and Time Seen Date: 03/11/17 Time: 08:00 Subjective Narrative: Patient seen and examined at bedside. No acute issues overnight. Patient denies any new issues or concerns this AM. Objective - Review of Systems Generalized/Overall Review: Reports: Weakness - generalized, Fatigue EENTM: Reports: No Symptoms Reported Respiratory: Reports: No Symptoms Reported Cardiac: Reports: Edema Abdominal: Reports: No Symptoms Reported Genitourinary Symptoms: Reports: No Symptoms Reported Musculoskeletal Complaints: Reports: No Symptoms Reported Neurological: Reports: No Symptoms Reported Skin: Reports: No Symptoms Reported Endocrine: Reports: No Symptoms Reported Misc: All systems neg except as marked - Vitals Vitals: Last Vital Signs Temp 36.2 C L 03/11/17 10:15 Pulse 90 03/11/17 10:15 Resp 20 03/11/17 10:15 BP 142/47 03/11/17 10:15 Pulse Ox 92 03/11/17 10:15 - Abnormal Lab Findings Abnormal Lab Findings: Abnormal Lab Results 03/10/17 03/11/17 Range/Units 18:00 05:35 Sodium 125 L 126 L (132-142) mmol/L Plasma Sodium 126 L 126 L (130-142) mmol/L Chloride 92 L 94 L (97-106) mmol/L Anion Gap 6.2 L (6.8-13.8) mmol/L Est GFR (Non-Af Amer) 52 L D (60-130) mL/min Random Glucose 142 H D (70-110) mg/dL - Exam Constitutional: Present: Alert, Oriented x3, Cooperative, Well developed, No distress, Elderly, Thin and frail ENT Exam: Present: hearing grossly normal, moist mucous membranes Respiratory: Present: lungs clear, normal breath sounds, no respiratory distress , no accessory muscle use Cardiovascular/Chest: Present: regular rate, rhythm, edema - Trace to 1+ pitting edema in bilateral LEs Abdomen: Present: soft, nontender, nondistended Extremity: Present: normal range of motion, non-tender, lower extremity edema - Trace to 1+ pitting edema in bilateral LEs Skin Exam: Present: warm/dry Neurologic: Present: alert, normal mood/affect, oriented x 3 Appearance: Present: appropriate appearance, appropriate insight, neat Eye contact: Present: cooperative, good eye contact, normal speech Thoughts: Present: normal thought pattern, no apparent hallucination Assessment/Plan - Problems/Diagnosis (1) Hyponatremia Problem: Acute Narrative: Hypotonic hyponatremia. Most likely secondary to poor PO intake in combination with ongoing diurectic use. Monitor to insure patient is able to keep her sodium level up on her own without IV fluids. Monitor BMP Q12H. Continue to hold home methotrexate as this is known to be a potential etiology of drug- induced hyponatremia. Although not as well documented/studied, pramipexole is another potential cause of drug-induced hyponatremia but we will continue this medication for now given the patients history of severe RLS. Start fluid restriction of 2000cc per 24 hours. If there is no improvement in her sodium level or if her sodium level drops, I will plan to stop the fluid restriction and start salt tabs. (2) Gastroparesis Problem: Acute Narrative: Gastric emptying study completed 03/08/2017 showed delayed gastric emptying consistent with gastroparesis. Patient started on reglan liquid PO 5mg 15 minutes before meals. Continue zofran as needed for N/V. Patient has noticed marked improvement since starting reglan on 03/08/2017. (3) Asymptomatic bacteriuria Problem: Acute Narrative: Final urine culture results indicate growth of citrobacter freundii. However, patient did not have any urinary complaints on admission so I would consider this asymptomatic bacteruria and antibiotic treatment is not indicated. (4) Acute sinus infection Problem: Acute Qualifiers: Sinusitis location: maxillary Narrative: Treat with azithromycin 250mg PO daily with plans to continue treatment for 3-5 days. Today is day #2 of treatment. (5) Postprandial abdominal bloating Problem: Resolved (6) Nausea Problem: Resolved
[2017-03-11] MEDS: ENOXAPARIN SODIUM 40 MG/0.4 ML SYRG SC SCH (15:19)
[2017-03-11 18:00] LABS: Anion Gap 12.6 mmol/L (6.8-13.8); BUN/Creatinine Ratio 20.5 (9.0-21.6); Calcium * 8.8 mg/dL (7.9-10.9); Carbon Dioxide 29.4 mmol/L (24-32.6); Estimated Creat Clear 46.9
[2017-03-11] MEDS: PRAMIPEXOLE DI-HCL 0.5 MG TABLET PO SCH (20:29)
[2017-03-11] MEDS: DONEPEZIL HCL 10 MG TABLET PO SCH (20:29)
[2017-03-11] MEDS: ALPRAZolam 0.5 MG TABLET PO PRN ×2 (20:37→20:39)
[2017-03-12 06:24] LABS: Anion Gap 10.9 mmol/L (6.8-13.8); Calcium * 8.5 mg/dL (7.9-10.9); Carbon Dioxide 30.7 mmol/L (24-32.6); Potassium 3.6 mmol/L (3.4-4.6)
[2017-03-12] MEDS: FLUTICASONE PROPIONATE 120 SPRAY INHALER NS PRN ×2 (07:05→20:36)
[2017-03-12] MEDS: PANTOPRAZOLE SODIUM 40 MG TABLET.EC PO SCH (07:05)
[2017-03-12] MEDS: METOCLOPRAMIDE HCL 5 MG/5 ML BTL PO SCH ×3 (07:05→17:24)
[2017-03-12] MEDS: ASPIRIN 81 MG TAB.CHEW PO SCH (08:05)
[2017-03-12] MEDS: SPIRONOLACTONE 25 MG TABLET PO SCH (08:05)
[2017-03-12] MEDS: LACTOBACILLUS ACIDOPHILUS 100 CAP BTL PO SCH (08:06)
[2017-03-12] MEDS: LOSARTAN POTASSIUM 50 MG TABLET PO SCH (08:06)
[2017-03-12] MEDS: FUROSEMIDE 40 MG TABLET PO SCH (08:06)
[2017-03-12] MEDS: VERAPAMIL HCL 120 MG TABLET.SA PO SCH (08:06)
[2017-03-12] MEDS: DULoxetine HCL 30 MG CAPSULE.SA PO SCH (08:06)
[2017-03-12] MEDS: SENNOSIDES 8.6 MG TABLET PO SCH ×2 (08:07→20:36)
[2017-03-12] MEDS: MULTIVITAMINS 1 CAP CAPSULE PO SCH (08:07)
[2017-03-12] MEDS: CYANOCOBALAMIN 1,000 MCG TABLET PO SCH (08:07)
[2017-03-12] MEDS: AZITHROMYCIN 250 MG TABLET PO SCH (08:07)
--- NOTE | 2017-03-12 09:03 | PN ---
Subjective - Date and Time Seen Date: 03/12/17 Time: 09:02 Subjective Narrative: Patient seen and examined at bedside. No acute issues overnight. Patient denies any new issues or concerns this AM. Objective - Review of Systems Generalized/Overall Review: Reports: Weakness - generalized, Fatigue EENTM: Reports: No Symptoms Reported Respiratory: Reports: No Symptoms Reported Cardiac: Reports: Edema Abdominal: Reports: No Symptoms Reported Genitourinary Symptoms: Reports: No Symptoms Reported Musculoskeletal Complaints: Reports: No Symptoms Reported Neurological: Reports: No Symptoms Reported Skin: Reports: No Symptoms Reported Endocrine: Reports: No Symptoms Reported Misc: All systems neg except as marked - Vitals Vitals: Last Vital Signs Temp 36.8 C 03/12/17 07:15 Pulse 92 03/12/17 08:06 Resp 20 03/12/17 07:15 BP 141/48 03/12/17 08:06 Pulse Ox 94 03/12/17 07:15 - Abnormal Lab Findings Abnormal Lab Findings: Abnormal Lab Results 03/11/17 03/12/17 Range/Units 17:48 05:30 Sodium 128 L (132-142) mmol/L Plasma Sodium 128 L (130-142) mmol/L Chloride 90 L 94 L (97-106) mmol/L Random Glucose 119 H (70-110) mg/dL - Exam Constitutional: Present: Alert, Oriented x3, Cooperative, Well developed, No distress, Elderly, Thin and frail ENT Exam: Present: moist mucous membranes Respiratory: Present: lungs clear, normal breath sounds, no respiratory distress , no accessory muscle use Cardiovascular/Chest: Present: regular rate, rhythm, edema - Trace to 1+ pitting edema in bilateral lower extremities Abdomen: Present: soft, nontender, nondistended Extremity: Present: lower extremity edema - Trace to 1+ pitting edema in bilateral lower extremities Skin Exam: Present: normal color, warm/dry, no cyanosis Neurologic: Present: alert, normal mood/affect, oriented x 3 Appearance: Present: appropriate appearance, appropriate insight, neat Eye contact: Present: cooperative, good eye contact, normal speech Thoughts: Present: normal thought pattern, no apparent hallucination Assessment/Plan - Problems/Diagnosis (1) Hyponatremia Problem: Acute Narrative: Hypotonic hyponatremia. Most likely secondary to poor PO intake in combination with ongoing diurectic use. Monitor to insure patient is able to keep her sodium level up on her own without IV fluids. Monitor BMP Q12H. Continue to hold home methotrexate as this is known to be a potential etiology of drug- induced hyponatremia. Although not as well documented/studied, pramipexole is another potential cause of drug-induced hyponatremia but we will continue this medication for now given the patients history of severe RLS. Continue fluid restriction of 2000cc per 24 hours. Patient's sodium level has improved nicely over the past 24 hours after starting the fluid restriction. Plan to discharge home tomorrow (03/13/2017) with [facility] as long as sodium level remains stable. (2) Gastroparesis Problem: Acute Narrative: Gastric emptying study completed 03/08/2017 showed delayed gastric emptying consistent with gastroparesis. Patient started on reglan liquid PO 5mg 15 minutes before meals. Continue zofran as needed for N/V. Patient has noticed marked improvement since starting reglan on 03/08/2017 and she denies any ongoing issues with nausea or bloating. (3) Acute sinus infection Problem: Acute Qualifiers: Sinusitis location: maxillary Narrative: Treat with azithromycin 250mg PO daily with plans to continue treatment for 3-5 days. Today is day #3 of treatment. Patient receive her final dose tomorrow prior to discharge. (4) Asymptomatic bacteriuria Problem: Acute Narrative: Final urine culture results indicate growth of citrobacter freundii. However, patient did not have any urinary complaints on admission so I would consider this asymptomatic bacteruria and antibiotic treatment is not indicated. (5) Postprandial abdominal bloating Problem: Resolved (6) Nausea Problem: Resolved
[2017-03-12] MEDS: ENOXAPARIN SODIUM 40 MG/0.4 ML SYRG SC SCH (15:17)
[2017-03-12 18:04] LABS: Anion Gap 10.5 mmol/L (6.8-13.8); BUN/Creatinine Ratio 19.8 (9.0-21.6); Calcium * 8.9 mg/dL (7.9-10.9); Carbon Dioxide 32.1 mmol/L (24-32.6); Potassium 3.6 mmol/L (3.4-4.6)
[2017-03-12] MEDS: PRAMIPEXOLE DI-HCL 0.5 MG TABLET PO SCH (20:34)
[2017-03-12] MEDS: DONEPEZIL HCL 10 MG TABLET PO SCH (20:35)
[2017-03-12] MEDS: ALPRAZolam 0.5 MG TABLET PO PRN (20:37)
[2017-03-13 05:51] LABS: Anion Gap 10.1 mmol/L (6.8-13.8); BUN/Creatinine Ratio 13.3 (9.0-21.6); Carbon Dioxide 31.6 mmol/L (24-32.6); Estimated Creat Clear 49.8; Potassium 3.7 mmol/L (3.4-4.6)
[2017-03-13 06:46] VITALS: BP 146/54
[2017-03-13] MEDS: PANTOPRAZOLE SODIUM 40 MG TABLET.EC PO SCH (07:22)
[2017-03-13] MEDS: METOCLOPRAMIDE HCL 5 MG/5 ML BTL PO SCH (07:22)
--- NOTE | 2017-03-13 07:57 | DS ---
(1) Hyponatremia Problem: Acute (2) Gastroparesis Problem: Acute (3) Acute sinus infection Problem: Acute Qualifiers: Sinusitis location: maxillary (4) Asymptomatic bacteriuria Problem: Acute (5) Postprandial abdominal bloating Problem: Resolved (6) Nausea Problem: Resolved Description of Stay: ADMISSION DATE: 03/06/2017 DISCHARGE DATE: 03/13/2017 ADMISSION HPI by RYAN Story: 81 years old WF adm to the hospital with reports of weakness, dizziness, leg cramps and nausea x3 days. PMH significant for diastolic CHF, hypertension, HDL, spinal stenosis, and vertigo. Pt stated she had CT ABD done 3 days ago and since then she been having a sick feeling to her stomach. She was having abdominal pain hence the reason for the CT ABD. After CT ABD she was having diarrhea as expected due to gastrografin. On Monday her appetite was poor and the sick feeling to her stomach got worst. she was now lightheaded, much more weaker and increased muscle cramps. In ER Na+ 119, urine specific gravity 1.010. She had bolus 1L NS and continue with NS hydration. Repeated Na+ gradually improving. Plan of care discussed with pt she verbalized understanding and agree. PROBLEM BASED HOSPITAL COURSE: Hyponatremia -Hypotonic hyponatremia. Most likely secondary to poor PO intake in combination with ongoing diuretic use. -Discontinue home methotrexate as this is known to be a potential etiology of drug-induced hyponatremia. The patient states she takes the methotrexate for dry skin and scaling on her scalp. She is going to talk with her tunnel man to determine if there is an alternative medication that she can use. -Although not as well documented/studied, pramipexole is another potential cause of drug-induced hyponatremia but we will continue this medication for now given the patients history of severe RLS. -Continue fluid restriction of 2000cc per 24 hours -Check BMP on 03/16/2017 Gastroparesis -Gastric emptying study completed 03/08/2017 showed delayed gastric emptying consistent with gastroparesis. Patient started on reglan liquid PO 5mg 15 minutes before meals. Patient has noticed marked improvement since starting reglan on 03/08/2017 and she denies any ongoing issues with nausea or bloating. Acute sinus infection -Treated with azithromycin 250mg PO daily X 3 days Asymptomatic bacteriuria -Final urine culture results indicate growth of citrobacter freundii. However , patient did not have any urinary complaints on admission so I would consider this asymptomatic bacteriuria and antibiotic treatment is not indicated. DISPOSITION: Patient discharged home in stable condition with [facility] arranged. FOLLOW-UP APPOINTMENTS: -PCP, Dr. Estrella, on 03/17/2017 @ 2:30PM -[facility] to draw BMP on 03/16/2017 NEW OR CHANGED MEDICATIONS: -Metoclopramide solution 5mg PO TID with meals DISCONTINUED MEDICATIONS: -Methotrexate Procedures Performed: none Discharge Disposition: Home self care Disposition: Home self-care Condition: Stable Discharge Activity: Activity as tolerated Discharge Diet: General/regular food, Other - Fluid restriction of 2000cc per 24 hours Correction Therapy: Physicial Therapy, Occupation Therapy Referrals: Edwina Estrella DO [Primary Care Provider] - Problem Oriented Discharge Instructions to Patient/Family: Hyponatremia, CHF Patient Instructions Additional Patient Instructions (free text): Please make TCM appointment at discharge, if applicable. Thank you! Iris @ [phone]. [facility], please call and fax discharge orders to them. -Follow-up with PCP, Dr. Estrella, within 1-2 weeks 03/17 at 2:30 [facility] to draw BMP on 03/16/2017 Prescriptions (Any new or edited meds): Metoclopramide HCl [Reglan Solution] 5 mg PO AC #1 btl Complete Home Medications List: Complete Home Medication List: Aspirin [Aspirin Chewable] 81 mg PO DAILY 12/11/15 Cyanocobalamin [Vitamin B-12] 1,000 mcg PO DAILY 12/11/15 Donepezil HCl [Aricept] 10 mg PO HS 12/11/15 L.acidoph,Paracasei, B.lactis [Probiotic] 1 each PO BID 12/11/15 Losartan Potassium [Cozaar] 100 mg PO DAILY 12/11/15 Omeprazole 40 mg PO DAILY 12/11/15 Pramipexole Di-HCl [Mirapex] 0.25 mg PO DAILY 12/11/15 Verapamil HCl [Verelan] 360 mg PO DAILY 12/11/15 Acetaminophen [Tylenol] 650 mg PO Q4H PRN 11/02/16 Calcium Carbonate [Calcium] 500 mg PO DAILY 11/02/16 Furosemide [Lasix] 40 mg PO DAILY 11/02/16 Meclizine HCl [Antivert] 6.25 mg PO BID 11/02/16 Sennosides [Senna Laxative] 8.6 mg PO BID 11/02/16 Spironolactone [Aldactone] 25 mg PO DAILY 11/02/16 Duloxetine HCl [Cymbalta] 30 mg PO DAILY 03/06/17 Multivitamin [One Daily Essential] 1 each PO DAILY 03/06/17 ALPRAZolam [Xanax] 0.25 - 0.5 mg PO Q6H PRN 03/07/17 Metoclopramide HCl [Reglan Solution] 5 mg PO AC #1 btl 03/13/17 Amb Orders for Discharge: Basic Metabolic Panel Time Frame: 03/16/17, Facility: [facility], Location: Home Health Care
[2017-03-13] MEDS ORDERED: METHOTREXATE SODIUM 2.5 MG TABLET PO SCH (09:00)
[2017-03-13] MEDS: CYANOCOBALAMIN 1,000 MCG TABLET PO SCH (09:43)
[2017-03-13] MEDS: DULoxetine HCL 30 MG CAPSULE.SA PO SCH (09:43)
[2017-03-13] MEDS: LOSARTAN POTASSIUM 50 MG TABLET PO SCH (09:43)
[2017-03-13] MEDS: FUROSEMIDE 40 MG TABLET PO SCH (09:43)
[2017-03-13] MEDS: MULTIVITAMINS 1 CAP CAPSULE PO SCH (09:43)
[2017-03-13] MEDS: SPIRONOLACTONE 25 MG TABLET PO SCH (09:43)
[2017-03-13] MEDS: AZITHROMYCIN 250 MG TABLET PO SCH (09:43)
[2017-03-13] MEDS: VERAPAMIL HCL 120 MG TABLET.SA PO SCH (09:43)
[2017-03-13] MEDS: LACTOBACILLUS ACIDOPHILUS 100 CAP BTL PO SCH (09:44)
[2017-03-13] MEDS: ASPIRIN 81 MG TAB.CHEW PO SCH (09:44)
[2017-03-13] MEDS: SENNOSIDES 8.6 MG TABLET PO SCH (09:44)
== END 2017-03-13 09:45 | disposition home health service (06) | DRG 641 ==
LOC: ER 14:13 → UNDOADMOB 15:44 → MS 15:44 → UNDODISOB 20:27 → OBSVTOIN 03-07 08:57
PROVIDERS: ADMIT Internal Medicine; ATTEND Internal Medicine
DX: E87.1 Hypo-osmolality and hyponatremia (principal); I50.32 Chronic diastolic (congestive) heart failure; K31.84 Gastroparesis; J01.00 Acute maxillary sinusitis, unspecified; R82.71 Bacteriuria; E87.5 Hyperkalemia; K59.01 Slow transit constipation; I10 Essential (primary) hypertension; E78.5 Hyperlipidemia, unspecified; Z79.82 Long term (current) use of aspirin; Z87.891 Personal history of nicotine dependence; Z23 Encounter for immunization
CPT/HCPCS: 36415; 78264; 80048; 80053; 81001; 82570; 83735; 83930; 83935; 84100; 84295; 84300; 84540; 85025; 87077; 87086; 87186; 90686; 96374; 97110; 97116; 97161; 99283; A9541; G0008; G0378; J2405